=== PATIENT | male | born 1995 | race Caucasian/White ===

== ENCOUNTER 2021-11-21 12:51 | Emergency (ER) | payer BC ==
[~2021-11-21] VITALS: Ht 182.9 cm; Wt 77.1 kg
== END 2021-11-21 16:30 | disposition home or self-care (01) ==
LOC: ER1 12:51
DX: U07.1 COVID-19 (principal); Z23 Encounter for immunization
CPT/HCPCS: 96374; 96375; 99283; J1885; J2405; M0245

== ENCOUNTER 2021-11-22 11:22 | Emergency (ER) | payer BC ==
[2021-11-22 12:41] LABS: HEMOGLOBIN 14.4 gm/dl (14.0-17.5); RED BLOOD COUNT 4.81 M/UL (4.20-5.50); WHITE BLOOD COUNT 8.4 K/UL (4.5-11.0)
[2021-11-22 13:00] LABS: BUN/CREATININE RATIO 15 (0-10)
== END 2021-11-22 13:24 | disposition home or self-care (01) ==
LOC: ER1 11:22
PROVIDERS: Physician Assistant
DX: U07.1 COVID-19 (principal); Z88.0 Allergy status to penicillin
CPT/HCPCS: 80048; 85025; 99283